=== PATIENT | male | born 1930 | race Caucasian/White ===

== ENCOUNTER → 2016-12-18 | Outpatient (CLI) | payer OTHER, MEDICARE | LOC: RAD 11:54 | DX: J44.9 Chronic obstructive pulmonary disease, unspecified (principal); R06.02 Shortness of breath; I10 Essential (primary) hypertension; E11.9 Type 2 diabetes mellitus without complications; Z87.891 Personal history of nicotine dependence ==

== ENCOUNTER → 2016-12-19 | Outpatient (CLI) | payer OTHER, MEDICARE | LOC: CT 10:18 | DX: R06.02 Shortness of breath (principal); Z87.891 Personal history of nicotine dependence ==